=== PATIENT | female | born 1980 | race Caucasian/White ===

== ENCOUNTER 2018-01-28 22:21 | Emergency (ER) | payer OTHER ==
[~2018-01-28] VITALS: Ht 157.5 cm; Wt 63.5 kg
[2018-01-28 22:27] VITALS: BP 137/78
--- NOTE | 2018-01-28 22:32 | NUR ---
to lobby a/w bed, an engel, claire noted
--- NOTE | 2018-01-28 23:01 | NUR ---
PATIENT PRESENTS TO ED WITH VAGINAL BLEEDING X2 DAYS. PT DENIES N/V/D; SKIN IS PINK/WARM/DRY; AAOX4 WITH EVEN AND STEADY GAIT; LUNGS CLEAR BL; HR EVEN AND REGULAR; PT DENIES ANY FEVER, CP, SOB, OR COUGH AT THIS TIME; PATIENT STATES PAIN OF 0/10 AT THIS TIME; VSS; PATIENT POSITIONED FOR COMFORT; HOB ELEVATED; BEDRAILS UP X1; BED DOWN. ER MD MADE AWARE OF PT STATUS.
[2018-01-28] MEDS ORDERED: NACL 0.9% 1,000 ML IV ONE (23:50)
[2018-01-29 00:06] LABS: BASOPHILS % (AUTO) 0.6 % (0.0-2.0); EOSINOPHILS # (AUTO) 0.1 K/uL (0-0.4); EOSINOPHILS % (AUTO) 1.7 % (0.0-4.0); HEMATOCRIT 34.2 % (36-48); HEMOGLOBIN 11.2 g/dL (12.0-16.0); LYMPHOCYTES # (AUTO) 3.3 K/uL (2.5-16.5); MEAN CORPUSCULAR HEMOGLOBIN 28 pg (27-31); MEAN CORPUSCULAR HGB CONC 33 g/dL (33-37); MEAN CORPUSCULAR VOLUME 84.9 fL (80-94); MONOCYTES # (AUTO) 0.8 K/uL (0.8-1.0); NEUTROPHILS # (AUTO) 4.6 K/uL (1.8-7.7); NEUTROPHILS % (AUTO) 51.7 % (42.2-75.2); PLATELET COUNT (AUTO) 284 K/uL (140-450); RED BLOOD CELL COUNT(AUTO) 4.03 MIL/uL (4.20-5.40); RED CELL DISTRIBUTION WIDTH 14.5 % (11.6-13.7); WHITE BLOOD COUNT (AUTO) 8.8 K/uL (4.8-10.8)
[2018-01-29 00:16] LABS: CARBON DIOXIDE 27.2 mmol/L (21-32); CREATININE 0.7 mg/dL (0.6-1.3); POTASSIUM 4.2 mmol/L (3.5-5.1)
--- NOTE | 2018-01-29 00:27 | NUR ---
Ultrasound at bedside.
[2018-01-29 01:51] VITALS: BP 137/78
--- NOTE | 2018-01-29 01:52 | NUR ---
Patient discharged with v/s stable. Written and verbal after care instructions given and explained. Patient verbalized understanding. Ambulatory with steady gait. All questions addressed prior to discharge. Advised to follow up with PMD.
== END 2018-01-29 01:52 | disposition home or self-care (01) ==
LOC: MED 22:21
DX: N94.6 Dysmenorrhea, unspecified (principal)
CPT/HCPCS: 36415; 76856; 80048; 84702; 85025; 96360; 99285; J7030; Q0092